=== PATIENT | female | born 1960 | race Caucasian/White ===

== ENCOUNTER → 2018-06-29 11:15 | Outpatient (CLI) | payer OTHER, SELFPAY ==
[2018-06-29 13:37] LABS: Add Manual Diff / Slide Review NO; Basophils Absolute Auto 100 /uL (0-100); Basophils Percent Auto 0.6 % (0-2); Eosinophils Absolute Auto 200 /uL (0-450); Eosinophils Percent Auto 1.6 % (2-4); Hematocrit 44.9 % (36-46); Hemoglobin 15.1 g/dL (12.0-16.0); Lymphocytes Absolute Auto 3000 /uL (1100-4500); Lymphocytes Percent Auto 29.9 % (25-40); Mean Corpuscular HGB Conc 33.7 % (30-36); Mean Corpuscular Hemoglobin 29.3 PG (26-34); Mean Corpuscular Volume 86.8 fL (80-100); Monocytes Absolute Auto 600 /uL (0-900); Monocytes Percent Auto 6.4 % (3-14); Neutrophils Absolute Auto 6100 /uL (1500-7000); Neutrophils Percent Auto 61.5 % (50-75); Platelet Count 246 X10^3/uL (150-400); Red Blood Cell Count 5.17 X10^6/uL (4.0-5.2); Red Cell Distribution Width 12.6 % (11.6-14.8); White Blood Cell Count 9.9 X10^3/uL (4.5-11.0)
[2018-06-29 13:41] LABS: Carbon Dioxide 31 mmol/L (22-32); Chloride 94 mmol/L (98-107); HEMOLYSIS < 15 (0-50); Potassium 4.7 mmol/L (3.4-5.1); Sodium 139 mmol/L (137-145)
== END ==
PROVIDERS: PCP Family Medicine; Visit Provider Orthopaedic Surgery
DX: Z01.818 Encounter for other preprocedural examination (principal); Z01.812 Encounter for preprocedural laboratory examination
CPT/HCPCS: 36415; 80051; 85025; 93005

== ENCOUNTER 2018-08-15 09:58 | Inpatient (IN) | payer OTHER, SELFPAY ==
[2018-08-08 08:53] VITALS: BMI 41.2
[2018-08-15] VITALS (15 sets, daily range): BP systolic 96–166; BP diastolic 49–86; PULSE 59–87; RESP 11–18; TEMP 35.7–37; O2SAT 94–97; BMI 41.5
--- NOTE | 2018-08-15 06:00 | DI.RAD.S_ITS ---
PROCEDURE: XR PELVIS 1-2V INDICATIONS: prosthesis placement TECHNIQUE: Single frontal view of the pelvis acquired. COMPARISON: None. FINDINGS: Bones: No fractures or dislocations. No suspicious bony lesions. Soft tissues: Visualized bowel gas pattern is normal. No suspicious soft tissue calcifications. IMPRESSION: Expected postoperative appearance after left total hip arthroplasty, normal alignment established. Dictated by: Jose David Burleson M.D. on 08/15/2018 at 15:20 Approved by: Jose David Burleson M.D. on 08/15/2018 at 15:21
[2018-08-15] MEDS: CELECOXIB 200 MG CAPSULE PO (11:19)
[2018-08-15] MEDS: ACETAMINOPHEN 325 MG TABLET 975 MG PO (11:19)
[2018-08-15] MEDS: PREGABALIN 75 MG CAPSULE PO (11:20)
--- NOTE | 2018-08-15 12:05 | PM.PREOP ---
Pre-operative Note Interval Note History & Physical reviewed/Exam performed by Physician: Yes Changes to H&P: No
[2018-08-15] MEDS: CLINDAMYCIN 900 MG/50 ML PIGGYBACK 50 MG IV (13:00)
--- NOTE | 2018-08-15 13:33 | SUR.OPER ---
Lateral on padded OR bed. Gel axillary roll. Arms secured on padded armboard with pillow supporting top arm. Padded hip positioner braces x4 - anterior and posterior chest and pelvis. Additional gel pad used anterior pelvis. Gel pad under bottom leg from knee to foot and secured with tape over sheet.
[2018-08-15] MEDS: ROPIVACAINE 0.5% PF 20ML 60 ML, MORPHINE 4 MG, KETOROLAC 30 MG INJ (13:41)
--- NOTE | 2018-08-15 15:07 | PM.OP.1 ---
Operative Date/Time/Diagnoses Date of procedure: 08/15/18 Time of procedure: 15:10 Pre-op diagnosis: Left hip degenerative joint disease Post-op diagnosis: same Procedure & Clinicians Procedure: Left total hip arthroplasty (CPT code 89828 with pediatric dental assistant) Same procedure as scheduled: Yes Indications: Patient is an 57-year-old female with severe left hip DJD. The patient has pain with activities and at rest, limited ambulation and activity tolerance, difficulties with ADLs, and failure of conservative treatment. We have discussed the nature of condition, treatment options, risks and benefits, and patient elects to proceed with total hip arthroplasty and gives informed consent. Surgeon: Rohit Kahn Spinning Lathe Operator Automatic: Eugenio Devine Anesthesia Type: General and Spinal Operative Notes Closure Type: primary Specimen(s): none sent Prosthetic devices, grafts, tissues, transplants, or devices: Acetabulum: Nolasco and Nephew R3 acetabular component size 48 mm Femoral component: Nolasco [employer] Nephew Anthology stem size 4 with standard offset Femoral head: 32 mm + 0 Oxinium Estimated Blood Loss (mL): 150 Blood products transfused: none Procedure in detail: After satisfaction induction of anesthetic, and administration of IV antibiotics, the patient was positioned in the lateral decubitus position with all bony prominences well padded and pelvic position secured using a hip gang tailer positioning device. Left hip and lower extremity prepped and draped in the usual sterile fashion, 1st dose of intravenous tranexamic acid was administered, then a longitudinal incision was created centered over the greater trochanter and carried sharply through the skin and subcutaneous tissues down to the fascia caitie which was divided longitudinally and retracted with a Charnley retractor. External rotators visualize, cut, tagged, and retracted posteriorly, then the capsule was cut in a T-type fashion with the corners tagged and retracted. Hip was dislocated and femoral neck cut made according to preoperative templating. Acetabular retractors then placed, and the acetabular labrum and osteophytes were excised. The acetabulum was then sequentially reamed to 47 mm with an excellent circumferential ream and fit with the trial. The trial component was removed and a permanent size 48 mm Nolasco and Nephew R3 acetabular component was selected, positioned, and impacted with satisfactory position and fixation achieved. Permanent liner was then inserted with the elevated lip directed posteriorly. Soft tissue then removed off the lateral femoral neck in the lateral neck was entered using a box osteotome. T-handled reamers placed down the canal followed by sequential broaching to for with the final broach left in place for trial reduction which demonstrated excellent leg length, range of motion, and stability characteristics with a 32 mm +0 trial ball. The trial and broach were removed, and a permanent size 4 Nolasco and Nephew Anthology stem was selected and inserted with excellent position and fixation achieved. Another trial reduction yielded the above characteristics so the trial ball was exchanged for a permanent 32 mm +0 Oxinium ball. The hip was irrigated and reduced and excellent leg length range of motion and stability characteristics were achieved and maintained. Periarticular tissues were infiltrated with ropivacaine, morphine, Toradol. The hip was copiously irrigated, and the capsule repaired with #2 Ethibond, and the piriformis was repaired back to the greater trochanter with the same. Fascia caitie closed with interrupted #1 Ethibond sutures, and the subcutaneous tissues were closed in 2 layers of 0 Vicryl and 2 0 Vicryl. Skin was closed with rhea and sterile dressings applied. Second dose of tranexamic acid was administered intravenously, and the anesthetic was terminated. Condition: stable Disposition: PACU Plan for aftercare: Patient will be admitted to the acute care [facility], and anticipate discharge on postop day 1 or 2 with follow-up in office in 10-14 days. Outpatient physical therapy will be arranged and patient will continue to observe posterior hip precautions. Patient will continue use of postoperative Lovenox for 10 days postop.
--- NOTE | 2018-08-15 15:14 | P.OP_ITS ---
Operative Date/Time/Diagnoses Date of procedure: 08/15/18 Time of procedure: 15:10 Pre-op diagnosis: Left hip degenerative joint disease Post-op diagnosis: same Procedure & Clinicians Procedure: Left total hip arthroplasty (CPT code 16601 with real estate legal assistant) Same procedure as scheduled: Yes Indications: Patient is an 57-year-old female with severe left hip DJD. The patient has pain with activities and at rest, limited ambulation and activity tolerance, difficulties with ADLs, and failure of conservative treatment. We have discussed the nature of condition, treatment options, risks and benefits, and patient elects to proceed with total hip arthroplasty and gives informed consent. Surgeon: Rohit Kahn [employer] Director: Eugenio Devine Anesthesia Type: General and Spinal Operative Notes Closure Type: primary Specimen(s): none sent Prosthetic devices, grafts, tissues, transplants, or devices: Acetabulum: Nolasco and Nephew R3 acetabular component size 48 mm Femoral component: Nolasco and Nephew Anthology stem size 4 with standard offset Femoral head: 32 mm + 0 Oxinium Estimated Blood Loss (mL): 150 Blood products transfused: none Procedure in detail: After satisfaction induction of anesthetic, and administration of IV antibiotics, the patient was positioned in the lateral decubitus position with all bony prominences well padded and pelvic position secured using a hip management professional positioning device. Left hip and lower extremity prepped and draped in the usual sterile fashion, 1st dose of intravenous tranexamic acid was administered, then a longitudinal incision was created centered over the greater trochanter and carried sharply through the skin and subcutaneous tissues down to the fascia caitie which was divided longitudinally and retracted with a Charnley retractor. External rotators visualize, cut, tagged, and retracted posteriorly, then the capsule was cut in a T-type fashion with the corners tagged and retracted. Hip was dislocated and femoral neck cut made according to preoperative templating. Acetabular retractors then placed, and the acetabular labrum and osteophytes were excised. The acetabulum was then sequentially reamed to 47 mm with an excellent circumferential ream and fit with the trial. The trial component was removed and a permanent size 48 mm Nolasco and Nephew R3 acetabular component was selected, positioned, and impacted with satisfactory position and fixation achieved. Permanent liner was then inserted with the elevated lip directed posteriorly. Soft tissue then removed off the lateral femoral neck in the lateral neck was entered using a box osteotome. T- handled reamers placed down the canal followed by sequential broaching to for with the final broach left in place for trial reduction which demonstrated excellent leg length, range of motion, and stability characteristics with a 32 mm +0 trial ball. The trial and broach were removed, and a permanent size 4 Nolasco and Nephew Anthology stem was selected and inserted with excellent position and fixation achieved. Another trial reduction yielded the above characteristics so the trial ball was exchanged for a permanent 32 mm +0 Oxinium ball. The hip was irrigated and reduced and excellent leg length range of motion and stability characteristics were achieved and maintained. Periarticular tissues were infiltrated with ropivacaine, morphine, Toradol. The hip was copiously irrigated, and the capsule repaired with #2 Ethibond, and the piriformis was repaired back to the greater trochanter with the same. Fascia caitie closed with interrupted #1 Ethibond sutures, and the subcutaneous tissues were closed in 2 layers of 0 Vicryl and 2 0 Vicryl. Skin was closed with rhea and sterile dressings applied. Second dose of tranexamic acid was administered intravenously, and the anesthetic was terminated. Condition: stable Disposition: PACU Plan for aftercare: Patient will be admitted to the acute care [facility], and anticipate discharge on postop day 1 or 2 with follow-up in office in 10-14 days. Outpatient physical therapy will be arranged and patient will continue to observe posterior hip precautions. Patient will continue use of postoperative Lovenox for 10 days postop.
--- NOTE | 2018-08-15 16:34 | PT.IPTN ---
Current Diagnoses Unilateral primary osteoarthritis, left hip (08/15/18) Surgery Performed Operation Date: 08/15/18 12:15 Actual Procedures p Total Hip Arthroplasty Posterior(Left) - Rohit Kahn MD Physical Therapy Treatment Note M3 PT-IP Subjective Start: 08/15/18 16:33 Freq: NEEDED Status: Active Protocol: Document 08/15/18 16:20 HH (Rec: 08/15/18 16:34 HH [id number]) Subjective Physical Therapy Visit Type Type Patient Unavailable Notes Pt arrived AC unit at 1600. Still not wake up from anesthesia. Reattempt PT tomorrow AM
[2018-08-15] MEDS: LACTATED RINGERS 1,000 ML 125 ML IV (16:44)
[2018-08-15] MEDS: IBUPROFEN 400 MG TABLET PO ×2 (18:28→21:15)
[2018-08-15] MEDS: METOPROLOL IR 25 MG TABLET PO (18:46)
[2018-08-15] MEDS: OXYCODONE/ACETAMINOPHEN 5/325 TABLET 0.5 TAB PO ×2 (18:46→21:15)
[2018-08-15] MEDS: CEFAZOLIN 2 GM/100 ML FROZ.PIGGY IV (21:00)
[2018-08-15] MEDS: ASPIRIN EC 81 MG TABLET PO (22:27)
--- NOTE | 2018-08-15 23:38 | PC.NURSE ---
Addendum entered by Madison Vargas R.N. 08/15/18 23:43: 2230- pt up to [facility] with 2PA FWW, reports a bit dizzy and hot, back to bed, bed alarm on. Addendum entered by Madison Vargas R.N. 08/15/18 23:41: 2000- Pt dangled in bed so bed lined could be changed r/t inc urine. Pt CMS + able to wiggle toes, ankle wave, stood at bedside 2PA FWW gait belt, then back to bed. reported felt a little dizzy. I.S. to 2500 with 3 breaths. tolerating reg diet. Original Note: 1600- Pt arrived to room 225 from [facility] via bed. A/O x3, Left hip bulky drsg CDI, pt remains with no movement to knees down, can not wiggle toes or move legs bilat, calf SCD's on, ice chips, water and gingerale provided. Pt denies nausea, pain or SOB at this time. 97%RA, LS clear. BT+, reg diet ordered. L hand LR @ 125 infusing. Keon in room, bed alarm on.
[2018-08-16] MEDS: LACTATED RINGERS 1,000 ML 125 ML IV (00:55)
[2018-08-16 03:10] VITALS: BP 124/61; PULSE 74; RESP 20; TEMP 36.6; O2SAT 97
[2018-08-16] MEDS: HYDROCODONE/ACET 5/325 TABLET 1 TAB PO (04:19)
[2018-08-16] MEDS: CEFAZOLIN 2 GM/100 ML FROZ.PIGGY IV (05:05)
[2018-08-16] MEDS: PANTOPRAZOLE 20 MG TABLET PO (05:41)
[2018-08-16 05:51] LABS: Hematocrit 33.9 % (36-46); Hemoglobin 11.6 g/dL (12.0-16.0)
--- NOTE | 2018-08-16 07:38 | PM.PNPO.1 ---
Subjective Interval history: Patient is seen bedside status post left total hip arthroplasty by Dr. Kahn on 08/15/2018. Patient is postop day 1. Her pain is controlled, but she complains of wide spread pruritus, likely secondary to the hydrocodone/APAP. She would like to go home today. Exam Vital Signs (past 8 hours): - 08/16/18 03:10 Temperature 97.9 F Pulse Rate 74 Respiratory Rate 20 Blood Pressure 124/61 Pulse Oximetry 97 Oxygen Delivery Method Room Air Oxygen Flow Rate 0 Narrative Exam Narrative: Well-developed, well-nourished, no acute distress. Alert and oriented to person, place, and time. Dressing on operative hip is clean, dry, and intact with no signs of drainage. Minimal erythema and generalized swelling around the surgical site. Neurovascularly intact in the operative extremity with a soft and compressible calf. Range of motion of the operative ankle intact. Objective Labs Result Diagrams: 08/16/18 05:23 Labs: Laboratory Results - last 24 hr 08/16/18 05:23 Hgb 11.6 L Hct 33.9 L Assessment & Plan Post-op Postoperative Procedures Operation Date: 08/15/18 12:15 Actual Procedures Side Surgeon p Total Hip Arthroplasty Posterior Left Rohit Kahn MD 1. POD #1 s/p above procedure-PT, pain control. 2. Post-operative anemia secondary to acute blood loss-H/H stable at this time, add vitamin c and iron supplement. 3. Stop hydrocodone, add oxycodone. Dispo-d/c home Quality VTE Deep Vein Thrombosis/Pulmonary Embolism Present on Admission: No
[2018-08-16 08:00] VITALS: BP 126/51; PULSE 75; RESP 16; TEMP 36.4; O2SAT 96
[2018-08-16] MEDS: ENOXAPARIN 40 MG/0.4 ML SYRINGE SUBCUT (08:46)
[2018-08-16] MEDS: METOPROLOL IR 25 MG TABLET PO (08:46)
[2018-08-16] MEDS: CHOLECALCIFEROL (VITAMIN D3) 5,000 UNIT TABLET 10000 UNIT PO (08:47)
[2018-08-16] MEDS: MULTIVITAMIN 1 TABLET 1 TAB PO (08:47)
[2018-08-16] MEDS: OXYCODONE/ACETAMINOPHEN 5/325 TABLET 0.5 TAB PO ×2 (08:47→14:15)
[2018-08-16] MEDS: IBUPROFEN 400 MG TABLET PO (08:47)
--- NOTE | 2018-08-16 09:25 | PT.IIE ---
Current Diagnoses Unilateral primary osteoarthritis, left hip (08/15/18) Surgery Performed Operation Date: 08/15/18 12:15 Actual Procedures p Total Hip Arthroplasty Posterior(Left) - Rohit Kahn MD Surgical History (Last Updated 08/08/18 @ 09:00 by Roseline Fong, RN) History of colonoscopy (Acute) History of third molar tooth extraction Status post delivery (10/23/82) Status post delivery (06/28/87) Status post laparoscopic supracervical hysterectomy (06/15/16) Medical History (Last Updated 08/08/18 @ 09:21 by Roseline Fong, VINH) Diverticula of colon (Acute) Former smoker (Acute) GERD (gastroesophageal reflux disease) (Acute) HTN (hypertension) (Acute) Migraines (Acute) Physical Therapy Inpatient Evaluation/Re-Eval M1 PT/OT-IP Prior Functional Status Start: 08/15/18 16:33 Freq: NEEDED Status: Active Protocol: Document 08/16/18 09:25 AB (Rec: 08/16/18 11:46 AB [email or web address]) Medical Review Prior Functional Status Medical History Reviewed Yes Communication able to make needs known Mobility and Gait pt stated that she is independent with all mobilities and ambulation without AD but has used a SPC for the last 2 months due to hip pain Social History Household Members spouse Living Arrangements Mobile home Number of Floors (Floors) One Floor Number of Stairs To Enter/Railing? 5 steps with B rail Home Environment High Toilet Home Equipment Front Wheel Walker Straight Cane Bedside Commode Shower Seat with Backrest Hand Held Shower Bed Rails Grab Bars Near Toilet Grab Bars In Shower Employment Status Retired M2 PT-IP Current Condition Start: 08/15/18 16:33 Freq: NEEDED Status: Active Protocol: Document 08/16/18 09:25 AB (Rec: 08/16/18 11:46 AB [email or web address]) Physical Therapy Current Condition Current Condition Evaluation Date 08/16/18 Treatment Diagnosis s/p L VONDA posterior approach; difficulty in walking Onset Date 08/15/18 Precautions Posterior Hip Precautions No Hip Flexion > 90 degrees No Hip Internal Rotation No Hip Adduction Weight Bearing Status Weight Bearing Status Weight Bear as Tolerated M3 PT-IP Subjective Start: 08/15/18 16:33 Freq: NEEDED Status: Active Protocol: Document 08/16/18 09:25 AB (Rec: 08/16/18 11:46 AB [email or web address]) Subjective Physical Therapy Visit Type Type Initial Evaluation Visit Start Time 09:25 Visit Stop Time 10:15 Total Visit Minutes 50 Number of HOUSEKEEPER CLEANING COOKING Visits 0 Physical Therapy Visit Comments Patient Comments pt agreeable to do PT Therapy Pain Assessment Pain When Pain Assessed At Rest Pain Present Pain Present Pain Reported Location Left Hip Intensity 2 Scale Used Numeric (1 - 10) Pain Management Techniques Apply Cold Timing of Activity with Medications M4 PT-IP Mobility and Gait Start: 08/15/18 16:33 Freq: NEEDED Status: Active Protocol: Document 08/16/18 09:25 AB (Rec: 08/16/18 11:46 AB [email or web address]) PT-Bed Mobility Assessment Supine to Sit Supine to Sit Standby Assistance Sit to Supine Sit to Supine Standby Assistance Scooting Scooting to Edge of Bed Standby Assistance PT-Transfer Assessment Sit to and From Stand Sit to and from Stand Standby Assistance Equipment Transfer Assistive Device Gait Belt Front Wheeled Walker Orthotic/Prosthetic Devices or Brace: No Transfers Transfer Destination Bed Transfer Technique pt ambulated using FWW Transfer Ability Level of Assist Standby Assistance Use of Upper Extremities Gait Assessment Gait Gait Assistance Required: Standby Assistance Distance (Feet) 350 Able to Maintain Weight Bearing Status Yes During Gait Assistive Devices Assistive Device Gait Belt Front Wheeled Walker Orthotic/Prosthetic Devices or Brace: No Gait Deviations General Gait Pattern Antalgic Decreased Stride Length Decreased Feet Clearance Factors Limiting Gait Function Factors Limiting Gait Function Decreased Strength Limited Range of Motion Pain Comments Gait Comments pt ambulated towards the stairs ~ 350 ft x 2 using FWW SBA Stair Climbing Assessment Evaluation Level of Assist On Stairs Standby Assistance Devices Stair Climbing Assistive Devices Left Railing Right Railing Technique/Endurance Stair Climbing Direction Ascend and Descend Stair Climbing Technique Step to Step Number of Steps Climbed 3 Query Text: Stair Climbing Set # Repetitions (reps) 2 PT-Balance Assessment Sitting Balance and Reactions Static Sitting Balance Ability Good Dynamic Sitting Balance Ability Good Standing Balance and Reactions Static Standing Balance Ability Fair Dynamic Standing Balance Ability Fair Device Used FWW M5 PT-IP Objective Assessments Start: 08/15/18 16:33 Freq: NEEDED Status: Active Protocol: Document 08/16/18 09:25 AB (Rec: 08/16/18 11:46 AB [email or web address]) Orientation Orientation/Cognition Level of Alertness Alert Orientation Name Place Situation Language Function Ability No Deficits Noted Safety Awareness Understands Safety Issues Memory Description No Deficits Noted Gross Range of Motion Lower Extremity ROM Assessment Within Functional Limits Strength Lower Extremity Strength Assessment Left Impaired Hip 3+/5 Knee 4-/5 Sensation Assessment Sensation Gross Sensation WNL Muscle Tone Muscle Tone WNL Yes M6 PT-IP Treatment Start: 08/15/18 16:33 Freq: NEEDED Status: Active Protocol: Document 08/16/18 09:25 AB (Rec: 08/16/18 11:46 AB [email or web address]) Physical Therapy Treatment Education Education Provided Precautions Weight Bearing Status Post-Op Packet Safety M7 PT-IP Assessment and Plan Start: 08/15/18 16:33 Freq: NEEDED Status: Active Protocol: Document 08/16/18 09:25 AB (Rec: 08/16/18 11:46 AB [email or web address]) PT Summary Assessment and Plan Potential Rehabilitation Potential Good Status of Condition at Evaluation Stable Summary Impairments Pain ROM Strength Balance Coordination Bed Mobility Transfers Gait Activity Tolerance Assessment Summary pt requiring SBA with mobility and plans to go home with spouse to assist her. car transfer training will be conducted later this afternoon at ~ 3pm. Goals Bed Mobility Goal Independent Transfer Goal Independent Front Wheeled Walker Gait Goal Independent Front Wheel Walker Gait Distance 400 Other Goals up/down 5 steps with B rails mod I Days to Meet Goals 3 Frequency of Treatment Frequency Of Treatment Twice a Day Treatment Plan Physical Therapy Treatment Plan Bed Mobility Training Transfer Training Gait Training Therapeutic Exercise Balance Retraining Post Op Education Discharge Planning Hot or Cold Pack Neuromuscular Re-ed Coordination Retraining Manual Therapy Other Recommendations and Next Treatment car transfer training, stair Focus climbing training Recommendations To Nursing Amount of Assist Needed Standby Assistance Discharge Recommendations PT Discharge Recommendations Home with Assistance Outpatient PT
--- NOTE | 2018-08-16 10:04 | PC.NURSE ---
Pt medicated with 0.5mg of percocet and is now ambulating in halls with PT and she seems to be doing well. Lovenox given and pt instructed on how to give, her will be giving it to her. Dressing to R.hip bulky and cdi. Denies any numbness or tingling to extremity. Pt has been sitting up in her chair and is comfortable.
--- NOTE | 2018-08-16 13:42 | CM.DANOTE ---
DCP/Assessment: Reviewed chart. Patient is a 57yr old male admitted to [facility] for left VONDA performed on 08-15-[address] Kahn. PCP is Sandra Lazcano. Primary payor 1)Paz Rajeev. Met with patient explained CM/SW role. Patient alert and oriented, sitting in recliner at time of visit. Patient reports that she has been seen by therapy and plans to go home today. Patient has all needed DME and supportive spouse/Keon. Patient has outpatient therapy already set up. No additional needs identified. P: Home today. MILAD Ray Discharge Planning/Care Management CM Discharge Assessment Start: 08/16/18 13:33 Freq: Status: Active Protocol: Document 08/16/18 13:33 KJS (Rec: 08/16/18 13:42 KJS [id number]) Discharge Planning Assessment Assigned Chief Accountant MILAD Ray Contact Information Keon Orellana (spouse) [phone] Advance Directives? No: Declines further information History Provided By Patient Medical Record Prior Living Arrangements Mobile home Household Members spouse Type of transporation used prior to Drives own vehicle admit Independent with ADL's Yes Is patient alert and oriented? Yes Caregiver for Another No DME Already Rented / Owned FWW / Walker Patient/Family Preference OP PT Therapy Barriers to Discharge No Discharge Plan Home Transportation Arrangement Family to provide transport. Referrals Initiated None needed Whiteboard Updated in Patient Room with Yes name and ext. 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 Required No Height 163.83 cm Weight 110.677 kg Body Mass Index (BMI) 41.2 Hearing Ability Normal Visual Assist Contacts Glasses Dentition Type Teeth, Natural Present Teeth, Missing Barriers to Learning None Other Aids No Hx Anesthesia Reactions Yes: Spinal leak w/, bad reaction, long to come out w/other c-sec Hx Family Anesthesia Reaction No Hx Malignant Hyperthermia No Hx Blood Transfusions No Anesthesia Review Requested No Spinning Operator No alcohol intake current alcohol intake frequency a few times a month Smoking Status Former smoker Tobacco type cigarettes how long ago did patient quit smoking Quit 11/2010 Substance Use Type does not use Pain Present Pain Reported Musculoskeletal Symptoms Abnormal Gait Back Pain Difficulty Walking Joint Pain Neck Pain History of Falling (Recent or History of No ) Patient is completely paralyzed or No completely immobile Prosthesis or Orthotic Device Cane Mental Status Oriented to own ability Is patient on oxygen? No Does patient have WHITTAKER/SOB No Hx Sleep Apnea No Currently Taking a Beta Natalee Yes: Metoprolol Can You Climb a Flight of Stairs Without Yes SOB Hx Chest Pain No Hx SOB No Hx Syncope or Dizziness No Anti-Coagulant Therapy No Has a Contact Manager No Cardiac Testing No Hx Pacemaker/ICD No Pacemaker Rep Required? No Cardiac Clearance Received Not Applicable Diet Type At Home Regular dysphagia No Bladder Pattern Nocturia Urinary Catheter Present No Hx Urinary Self Catheterization No Diabetes No Patient No Lactating No Hx Drug Resistant Organism No Presence of External or Internal Medical No Devices Have you traveled outside the [facility] in the last 30 days? Marital Status Lives With spouse Prior Living Arrangements Mobile home Number of Floors (Floors) One Floor Support System Child/Children Spouse Does the Patient Have Assistance After Yes Surgery Patient Discharge Plan Description Return Home Comment Pt advised 1 day length of stay per surgeon's office Feels Safe in Current Environment Yes Been Physically Hurt or Threatened By a No Person in Current Environment Do you have thoughts of harming yourself None or others? Are you currently considering suicide? No Do you have a plan to hurt yourself or No Plan others? Do You Have Any Spiritual Beliefs That No May Affect Your HC Choices? Do You Have Any Cultural Practices That No May Affect Your HC Choices? Spiritual Referral None Who Can We Speak to About Patient's Care Family, friends Identifying Code for Release of Patient Declines to issue Information Health Care Proxy/Next of Kin Keon () Health Care Proxy Emergency Contact Name Keon () Emergency Contact Advance Directives? No: Declines further information PAC Instructions Do not shave/clip surgical site Durable medical equipment Medications to take/avoid Nasal antibiotic No ETOH/petroleum product on skin DOS NPO Post-op transportation Pre-surgical wash Sturdy shoes/comfortable clothes Do not bring valuables and remove jewelry
[2018-08-16] MEDS: OXYCODONE IR 5 MG TABLET PO (14:09)
--- NOTE | 2018-08-16 14:59 | PT.IPTN ---
Current Diagnoses Unilateral primary osteoarthritis, left hip (08/15/18) Surgery Performed Operation Date: 08/15/18 12:15 Actual Procedures p Total Hip Arthroplasty Posterior(Left) - Rohit Kahn MD Physical Therapy Treatment Note M2 PT-IP Current Condition Start: 08/15/18 16:33 Freq: NEEDED Status: Discharge Protocol: Document 08/16/18 09:25 AB (Rec: 08/16/18 11:46 AB [id number]) Physical Therapy Current Condition Current Condition Evaluation Date 08/16/18 Treatment Diagnosis s/p L VONDA posterior approach; difficulty in walking Onset Date 08/15/18 Precautions Posterior Hip Precautions No Hip Flexion > 90 degrees No Hip Internal Rotation No Hip Adduction Weight Bearing Status Weight Bearing Status Weight Bear as Tolerated M3 PT-IP Subjective Start: 08/15/18 16:33 Freq: NEEDED Status: Discharge Protocol: Document 08/16/18 14:59 AB (Rec: 08/16/18 16:47 AB [id number]) Subjective Physical Therapy Visit Type Type Treatment Note Visit Start Time 14:59 Visit Stop Time 15:17 Total Visit Minutes 18 Number of SPANISH INTERPRETER/TRANSLATOR Visits 0 Therapy Pain Assessment Pain When Pain Assessed At Rest Pain Present Pain Present Pain Reported Location Left Hip Intensity 4 Scale Used Numeric (1 - 10) M4 PT-IP Mobility and Gait Start: 08/15/18 16:33 Freq: NEEDED Status: Discharge Protocol: Document 08/16/18 14:59 AB (Rec: 08/16/18 16:47 AB [id number]) PT-Transfer Assessment Sit to and From Stand Sit to and from Stand Standby Assistance Equipment Transfer Assistive Device Front Wheeled Walker Transfers Transfer Destination Car Comments Mobility Comments pt ambulated from w/c to the car using FWW SBA. pt stepped up on stool and completed car transfer CGA and cues. educated spouse on how to assist pt. M5 PT-IP Objective Assessments Start: 08/15/18 16:33 Freq: NEEDED Status: Discharge Protocol: Document 08/16/18 09:25 AB (Rec: 08/16/18 11:46 AB [id number]) Orientation Orientation/Cognition Level of Alertness Alert Orientation Name Place Situation Language Function Ability No Deficits Noted Safety Awareness Understands Safety Issues Memory Description No Deficits Noted Gross Range of Motion Lower Extremity ROM Assessment Within Functional Limits Strength Lower Extremity Strength Assessment Left Impaired Hip 3+/5 Knee 4-/5 Sensation Assessment Sensation Gross Sensation WNL Muscle Tone Muscle Tone WNL Yes M6 PT-IP Treatment Start: 08/15/18 16:33 Freq: NEEDED Status: Discharge Protocol: Document 08/16/18 14:59 AB (Rec: 08/16/18 16:47 AB [id number]) Physical Therapy Treatment Education Education Provided Precautions Safety M7 PT-IP Assessment and Plan Start: 08/15/18 16:33 Freq: NEEDED Status: Discharge Protocol: Document 08/16/18 14:59 AB (Rec: 08/16/18 16:47 AB [id number]) PT Summary Assessment and Plan Potential Rehabilitation Potential Good Summary Impairments Pain ROM Strength Balance Bed Mobility Transfers Gait Activity Tolerance Progress Towards Goals Progressing Toward Goals Assessment Summary pt is doing well with mobility requiring SBA. pt went home with spouse. spouse will assist pt at home. pt is set up for outpt PT. Goals Bed Mobility Goal Independent Transfer Goal Independent Front Wheeled Walker Gait Goal Independent Front Wheel Walker Gait Distance 400 Other Goals up/down 5 steps with B rails mod I Days to Meet Goals 3 Frequency of Treatment Frequency Of Treatment Twice a Day Treatment Plan Physical Therapy Treatment Plan Bed Mobility Training Transfer Training Gait Training Therapeutic Exercise Balance Retraining Post Op Education Discharge Planning Hot or Cold Pack Neuromuscular Re-ed Coordination Retraining Manual Therapy Other Recommendations and Next Treatment car transfer training, stair Focus climbing training Recommendations To Nursing Amount of Assist Needed Standby Assistance Discharge Recommendations PT Discharge Recommendations Home with Assistance Outpatient PT
== END 2018-08-16 15:12 | disposition home or self-care (01) | DRG 470 ==
PROVIDERS: Admitting Provider Orthopaedic Surgery; PCP Family Medicine; Visit Provider Orthopaedic Surgery
PROC: 0SRB0JZ Replacement of Left Hip Joint with Synthetic Substitute, Open Approach (ICD-10-PCS; CPT 27130; principal; 2018-08-15 12:15)
DX: M16.12 Unilateral primary osteoarthritis, left hip (principal); Z68.41 Body mass index [BMI] 40.0-44.9, adult; D62 Acute posthemorrhagic anemia; I10 Essential (primary) hypertension; Z87.891 Personal history of nicotine dependence; K21.9 Gastro-esophageal reflux disease without esophagitis; M70.62 Trochanteric bursitis, left hip; E66.9 Obesity, unspecified; L29.8 Other pruritus; T40.2X5A Adverse effect of other opioids, initial encounter
CPT/HCPCS: 36415; 72170; 85014; 85018; 97161; 97530; C1776; J0690; J1100; J1650; J1885; J2250; J2270; J2274; J2405; J2704; J2795

== ENCOUNTER → 2019-06-07 07:38 | Outpatient (CLI) | payer OTHER, SELFPAY ==
[2018-08-15 16:00] VITALS: BMI 41.5
--- NOTE | 2019-06-07 07:42 | DI.MG.S_ITS ---
BILATERAL DIGITAL SCREENING MAMMOGRAM 3D/2D WITH CAD: 06/07/2019 CLINICAL: Routine screening. Family history of breast cancer. Comparison is made to exams dated: 03/02/2016 mammogram, 01/18/2014 mammogram, and 11/03/2012 mammogram - [facility]. There are scattered fibroglandular elements in both breasts. Current study was also evaluated with a Computer Aided Detection (CAD) system. No significant masses, calcifications, or other findings are seen in either breast. There has been no significant interval change. IMPRESSION: NEGATIVE There is no mammographic evidence of malignancy. A 1 year screening mammogram is recommended. This exam was interpreted at Station ID: [id number]. NOTE: For mammograms, a report in lay terms will be sent to the patient. Approximately 15% of breast malignancies will not be visualized mammographically. In the management of a palpable breast mass, a negative mammogram must not discourage biopsy of a clinically suspicious lesion. Electronically Signed By: Clarence bain/leni:06/07/2019 19:39:53 letter sent: Normal Exam ACR BI-RADS Category 1: Negative [id number]
== END ==
PROVIDERS: PCP Family Medicine; Referring Provider Family Medicine; Visit Provider Family Medicine
DX: Z12.31 Encounter for screening mammogram for malignant neoplasm of breast (principal); Z80.3 Family history of malignant neoplasm of breast
CPT/HCPCS: 77063; 77067

== ENCOUNTER → 2020-06-08 10:35 | Outpatient (CLI) | payer BC, SELFPAY ==
[2018-08-15 16:00] VITALS: BMI 41.5
--- NOTE | 2020-06-08 | DI.MG.S_ITS ---
BILATERAL DIGITAL SCREENING MAMMOGRAM 3D/2D WITH CAD: 06/08/2020 CLINICAL: Routine screening. Family history of breast cancer. Comparison is made to exams dated: 06/07/2019 mammogram - [facility], 03/02/2016 mammogram, and 01/18/2014 mammogram - [facility]. The tissue of both breasts is predominantly fatty. Current study was also evaluated with a Computer Aided Detection (CAD) system. No significant masses, calcifications, or other findings are seen in either breast. There has been no significant interval change. IMPRESSION: NEGATIVE There is no mammographic evidence of malignancy. A 1 year screening mammogram is recommended. This exam was interpreted at Station ID: [id number]. NOTE: For mammograms, a report in lay terms will be sent to the patient. Approximately 15% of breast malignancies will not be visualized mammographically. In the management of a palpable breast mass, a negative mammogram must not discourage biopsy of a clinically suspicious lesion. Electronically Signed By: Clarence bain/leni:06/10/2020 07:56:32 letter sent: Normal Exam ACR BI-RADS Category 1: Negative [id number]
== END ==
PROVIDERS: PCP Family Medicine; Referring Provider Family Medicine; Visit Provider Family Medicine
DX: Z12.31 Encounter for screening mammogram for malignant neoplasm of breast (principal); Z80.3 Family history of malignant neoplasm of breast
CPT/HCPCS: 77063; 77067

== ENCOUNTER → 2020-09-30 16:14 | Outpatient (CLI) | payer BC, SELFPAY ==
[2018-08-15 16:00] VITALS: BMI 41.5
--- NOTE | 2020-09-30 16:16 | DI.RAD.S_ITS ---
PROCEDURE: XR CHEST 2V INDICATIONS: chronic cough TECHNIQUE: 2 views of the chest were acquired. COMPARISON: None. FINDINGS: Surgical changes and devices: None. Lungs and pleura: Lungs are clear. No pleural effusions or pneumothorax. Mediastinum: Mediastinal contours are normal. Heart size is normal. Bones and chest wall: No suspicious bony abnormalities. Soft tissues appear unremarkable. IMPRESSION: No acute disease. Dictated by: Chuck Cruz M.D. on 09/30/2020 at 17:17 Approved by: Chuck Cruz M.D. on 09/30/2020 at 17:18
== END ==
PROVIDERS: PCP Family Medicine; Referring Provider Family Medicine; Visit Provider Family Medicine
DX: R05 Cough (principal)
CPT/HCPCS: 71046

== ENCOUNTER 2021-04-06 10:28 | Emergency (ER) | payer BC, SELFPAY ==
[2018-08-15 16:00] VITALS: BMI 41.5
[2021-04-06] VITALS (16 sets, daily range): BP systolic 147–171; BP diastolic 65–74; PULSE 55–80; RESP 14–34; TEMP 37.1; O2SAT 95–98; BMI 45.3
--- NOTE | 2021-04-06 10:46 | DI.RAD.S_ITS ---
PROCEDURE: XR CHEST 1V INDICATIONS: chest pain TECHNIQUE: One view of the chest was acquired. COMPARISON: [facility], CR, XR CHEST 2V, 09/30/2020, 16:14. FINDINGS: Surgical changes and devices: None. Lungs and pleura: Lungs are clear. No pleural effusions or pneumothorax. Mediastinum: Mediastinal contours appear normal. Heart size is normal. The aorta is tortuous with atherosclerotic calcifications. Bones and chest wall: No suspicious bony lesions. Overlying soft tissues appear unremarkable. IMPRESSION: No acute cardiopulmonary abnormality. Dictated by: Kal Piedra M.D. on 04/06/2021 at 10:53 Approved by: Kal Piedra M.D. on 04/06/2021 at 10:53
--- NOTE | 2021-04-06 11:09 | ED.CHESTPAIN ---
HPI - Chest Pain General Chief Complaint: Chest Pain Stated Complaint: chest pain,vomiting,back pain Time Seen by Provider: 04/06/21 11:03 Source: patient Mode of arrival: Family Vehicle Limitations: no limitations History of Present Illness HPI narrative: Patient is a 60-year-old female. Was awoken at approximately 0230 in the morning for epigastric abdominal pain. She went to bed last night feeling fine. When she woke up she was having nausea. She did vomit a couple times which did not change her pain at all. No chest pain. No shortness of breath. She has had abdominal pain in the past recently saw her primary doctor and has referral in to have an endoscopy which she states the pain that brought her in this morning is different from the pain that she has seen her primary doctor in the past for. No urinary symptoms. She has had a hysterectomy. No other abdominal surgeries. No fevers. Had diarrhea couple days ago but nothing current. She did try some Tums and Pepto-Bismol prior to arrival without any improvement. She feels better now than when she did in the middle of the night. Related Data Home Medications Medication Instructions Recorded Confirmed multivitamin (Multiple Vitamins) 1 tab PO QDAY #0 06/08/16 03/25/21 turmeric (bulk) 95 % powder % MISC 02/29/20 03/25/21 (Curcumin) ascorbic acid (vitamin C) 500 mg 500 mg PO DAILY tab 09/30/20 03/25/21 tablet (Vitamin C) cholecalciferol (vitamin D3) 125 125 mcg PO DAILY 09/30/20 03/25/21 mcg (5,000 unit) capsule docusate sodium 100 mg capsule 100 mg PO BID PRN 09/30/20 03/25/21 (Dulcolax Stool Softener (docusate)) magnesium citrate 100 mg tablet 100 mg PO QPM tab 09/30/20 03/25/21 Previous Rx's Medication Instructions Recorded acyclovir 400 mg tablet 400 mg PO TID PRN #45 tab 12/11/20 metoprolol tartrate 50 mg tablet 50 mg PO BID #180 tab 12/24/20 omeprazole 20 mg capsule,delayed See Rx Instructions .ROUTE 01/07/21 release .COMPLEX #90 cap hydrochlorothiazide 25 mg tablet See Rx Instructions .ROUTE 01/16/21 .COMPLEX #90 tab ibuprofen 800 mg tablet 800 mg PO BID PRN #60 tab 04/02/21 ondansetron 4 mg disintegrating 4 mg PO Q6H PRN #10 tab 04/06/21 tablet Allergies Allergy/AdvReac Type Severity Reaction Status Date / Time lisinopril [LISINOPRIL] Allergy Severe Causes my Verified 04/06/21 10:43 throat to close adhesive tape [ADHESIVE TAPE] Allergy Mild REDNESS Verified 04/06/21 10:43 PAPER TAPE OK latex [LATEX] Allergy Mild RASH Verified 04/06/21 10:43 codeine [CODEINE] AdvReac Severe GI UPSET, Verified 04/06/21 10:43 VOMITING, Headaches meperidine [From DEMEROL] AdvReac Severe HALLUCINATI Verified 04/06/21 10:43 ONS Review of Systems Constitutional Constitutional: Reports system reviewed and no additional complaints, except as documented ENT Ears, Nose, Mouth, and Throat: Reports system reviewed and no additional complaints, except as documented Cardiovascular Cardiovascular: Reports system reviewed and no additional complaints, except as documented Respiratory Respiratory: Reports system reviewed and no additional complaints, except as documented Gastrointestinal Gastrointestinal: Reports system reviewed and no additional complaints, except as documented Genitourinary Genitourinary: Reports system reviewed and no additional complaints, except as documented Musculoskeletal Musculoskeletal: Reports system reviewed and no additional complaints, except as documented and Reports as per HPI Integumentary/Breasts Skin/Breast: Reports system reviewed and no additional complaints, except as documented and Reports as per HPI Neurologic Neurologic: Reports system reviewed and no additional complaints, except as documented Hematologic/Lymphatic On Anticoagulants: No Patient History Medical History Cough Diverticula of colon Former smoker GERD (gastroesophageal reflux disease) HTN (hypertension) Migraines Neoplasm of uncertain behavior of skin Prediabetes Surgical History History of colonoscopy History of third molar tooth extraction Status post delivery (10/23/82) Status post delivery (06/28/87) Status post laparoscopic supracervical hysterectomy (06/15/16) Social History household members: spouse Smoking Status: Former smoker alcohol intake: current Smoking Status: Former smoker tobacco type: cigarettes alcohol intake frequency: a few times a month Substance Use Type: does not use Exam Initial Vital Signs Initial Vital Signs: Vital Signs Temperature 98.8 F 04/06/21 10:39 Pulse Rate 68 04/06/21 10:39 Respiratory Rate 18 04/06/21 10:39 Blood Pressure 166/72 H 04/06/21 10:39 Pulse Oximetry 97 04/06/21 10:39 Const General: cooperative, healthy appearing, comfortable and well developed Limitations: mental status not altered HENAR Head: normal to inspection and normocephalic Chest Chest: normal inspection of the chest, No crepitus and No tenderness Resp Effort & Inspection: normal respiratory effort Auscultation: clear to auscultation bilaterally Cardio Rate: regular rate Rhythm: regular rhythm GI Inspection: non-distended Palpation: soft General: bimanual renal exam normal bilaterally Back/Spine/Pelvis Back: normal to inspection and back tenderness Skin General: no rashes or lesions noted Neuro General: patient alert, patient awake, patient oriented x3 and moves all extremities Cognition: normal cognition Speech: speech normal Extrem General: normal to inspection and capillary refill normal Psych Appearance: grossly normal and well kempt Course Orders Ordered: ED Orders 04/06/21 10:46 XR chest 1V Stat EKG-12 Lead Stat 04/06/21 11:00 Complete Blood Count AUTO DIFF Stat Comprehensive Metabolic Panel Stat Lipase Stat Magnesium Stat Troponin & CK Cardiac Panel Stat 04/06/21 11:20 US abdomen limited Stat 04/06/21 13:25 CT abdomen pelvis w con Stat Discontinued Medications Sodium Chloride (Normal Saline 0.9%) 1,000 mls @ 1,000 mls/hr IV BOLUS ONE Stop: 04/06/21 13:46 Last Admin: 04/06/21 13:02 Dose: 1,000 mls/hr Documented by: TONY Ondansetron HCl (Ondansetron 4 Mg/2 Ml Inj) 4 mg IV NOW ONE Stop: 04/06/21 12:48 Last Admin: 04/06/21 13:02 Dose: 4 mg Documented by: TONY Vital Signs Vital signs: Vital Signs - 8 hr 04/06/21 10:39 04/06/21 11:04 04/06/21 11:23 Temperature 98.8 F Pulse Rate 68 62 61 Respiratory Rate 18 26 H 21 Blood Pressure 166/72 H 171/71 H Pulse Oximetry 97 98 98 04/06/21 11:30 04/06/21 11:31 04/06/21 12:00 Temperature Pulse Rate 55 L 56 L 62 Respiratory Rate 14 18 25 H Blood Pressure 148/65 H Pulse Oximetry 97 98 98 04/06/21 12:01 04/06/21 12:30 04/06/21 12:31 Temperature Pulse Rate 66 60 61 Respiratory Rate 34 H 21 19 Blood Pressure 147/65 H 158/67 H Pulse Oximetry 98 98 97 04/06/21 13:00 04/06/21 13:01 Temperature Pulse Rate 62 61 Respiratory Rate 20 21 Blood Pressure 150/65 H Pulse Oximetry 95 96 MDM - Chest Pain Lab Data Attestation: I reviewed the patient's lab results. Result diagrams: 04/06/21 11:00 04/06/21 11:00 Labs: Lab Results 04/06/21 04/06/21 Range/Units 11:00 11:00 WBC 16.3 H (4.5-11.0) X10^3/uL RBC 5.03 (4.0-5.2) X10^6/uL Hgb 14.9 (12.0-16.0) g/dL Hct 43.6 (36-46) % MCV 86.6 (80-100) fL MCH 29.6 (26-34) PG MCHC 34.2 (30-36) % RDW 13.0 (11.6-14.8) % Plt Count 271 (150-400) X10^3/uL Neut % (Auto) 84.9 H (50-75) % Lymph % (Auto) 11.2 L (25-40) % Mcnairy % (Auto) 3.2 (3-14) % Eos % (Auto) 0.2 L (2-4) % Baso % (Auto) 0.5 (0-2) % Neut # (Auto) 03798 H (3856-3950) /uL Lymph # (Auto) 1800 (8943-0689) /uL Mcnairy # (Auto) 500 (0-900) /uL Eos # (Auto) 0 (0-450) /uL Baso # (Auto) 100 (0-100) /uL Sodium 137 (137-145) mmol/L Potassium 4.5 (3.4-5.1) mmol/L Chloride 98 (98-107) mmol/L Carbon Dioxide 31 (22-32) mmol/L BUN 17 (7-17) mg/dL Creatinine 0.61 (0.52-1.04) mg/dL Estimated GFR > 60.0 (>60) mL/min BUN/Creatinine Ratio 27.9 H (6-22) Glucose 129 H (80-110) mg/dL Calcium 9.3 (8.4-10.2) mg/dL Magnesium 1.8 (1.6-2.3) mg/dL Total Bilirubin 0.6 (0.2-1.3) mg/dL AST 42 H (14-36) IU/L ALT 30 (<35) IU/L Alkaline Phosphatase 63 (38-126) U/L Total Creatine Kinase 121 (30-135) U/L CK-MB (CK-2) 1.84 (<2.37) ng/mL CK-MB (CK-2) Rel Index 1.5 (1.5-5.0) % Troponin I < 0.012 (0.01-0.034) ng/mL Total Protein 8.0 (6.3-8.2) g/dL Albumin 4.4 (3.5-5.0) g/dL Globulin 3.6 (1.7-4.1) g/dL Albumin/Globulin Ratio 1.2 (1.0-2.8) Lipase 47 (23-300) U/L Urine Dip Bedside Urine Glucose Negative Bedside Urine Bilirubin - Negative Bedside Urine Ketone - Negative Urine Specific Belle 1.020 Bedside Urine Occult Blood - Negative Bedside Urine pH 8.0 Bedside Urine Protein - Negative Bedside Urine Urobilinogen - Negative Bedside Urine Nitrite - Negative Bedside Urine Leukocytes - Negative Esterase Imaging Data Chest x-ray: Radiologist's Impression: [address] [address] XRay Report Signed Patient: Marlee Orellana MR#: [id number] : 1960 Acct:[id number] Age/Sex: 60 / F Date of Service: 04/06/21 Loc: ED Accession Number: [id number] ?? Procedure: XR chest 1V Ordering Provider: Oz Perez D.O. PROCEDURE:? XR CHEST 1V ? INDICATIONS:? chest pain ? TECHNIQUE:? One view of the chest was acquired.? ? COMPARISON:? [facility], CR, XR CHEST 2V, 09/30/2020, 16:14. ? FINDINGS:? ? Surgical changes and devices:? None.? ? Lungs and pleura:? Lungs are clear.? No pleural effusions or pneumothorax.? ? Mediastinum:? Mediastinal contours appear normal.? Heart size is normal.? The aorta is tortuous with atherosclerotic calcifications. ? Bones and chest wall:? No suspicious bony lesions.? Overlying soft tissues appear unremarkable.? ? IMPRESSION:? No acute cardiopulmonary abnormality. ? ? Dictated by: Kal Piedra M.D. on 04/06/2021 at 10:53 ? ? Approved by: Kal Piedra M.D. on 04/06/2021 at 10:53?? CT scan - abdomen/pelvis: Radiologist's Impression: [place] [address] CT Scan Report Signed Patient: Marlee Orellana MR#: [id number] : 1960 Acct:[id number] Age/Sex: 60 / F Date of Service: 04/06/21 Loc: ED Accession Number: [id number] ?? Procedure: CT abdomen pelvis w con Ordering Provider: Oz Perez D.O. PROCEDURE:? CT ABDOMEN PELVIS W CON ? INDICATIONS:? Abdominal pain and vomiting with eating ? TECHNIQUE:? After the administration of intravenous contrast, axial sections acquired from the lung bases to the pubic symphysis.? Coronal and sagittal reformats were performed.? For radiation dose reduction, the following was used:? automated exposure control, adjustment of mA and/or kV according to patient size.? ? COMPARISON:? None. ? FINDINGS: Image quality:? Excellent.? ? Lung bases:? Lung bases are clear.? Heart size is normal. ? Solid organs:? Liver: The liver has no mass or intrahepatic biliary ductal dilatation. The portal vein and hepatic veins are patent. Biliary: The gallbladder has no gallstones, pericholecystic fluid, gallbladder wall thickening, or surrounding inflammatory change. Pancreas: The pancreas has no mass or ductal dilatation. There is no surrounding inflammation. Spleen: Normal size. There are no masses. Adrenals: No hypertrophy or nodules. Kidneys: No obstructive calculus or hydronephrosis.? No solid mass. No cystic mass. ? Peritoneum and bowel:? There is a small hiatal hernia.? Otherwise the distal esophagus and stomach are normal.? The small bowel has a normal caliber and appearance. The terminal ileum is normal. The large bowel has a normal caliber and appearance.? The appendix is not definitively visualized; however there are no secondary findings to suggest acute appendicitis.? No free fluid or air.? ? Nodes and vessels:? No retroperitoneal or mesenteric adenopathy by size criteria.? Aorta and inferior vena cava are normal in size.? ? Miscellaneous:? No abdominal wall mass or hernia. ? PELVIS:? Genitourinary:? The bladder has no wall thickening or mass. No bladder calcifications. ? Bones:? Degenerative changes with no focal abnormality.? Multilevel disc disease.? No vertebral body compression fractures.? ? IMPRESSION:? No acute abdominal or pelvic abnormality. ? ? Dictated by: Kal Piedra M.D. on 04/06/2021 at 12:48 ? ? Approved by: Kal Piedra M.D. on 04/06/2021 at 12:55 ECG Data Attestation: I personally reviewed and interpreted this ECG as follows: Prior ECG tracings: not available for review Interpretation: Sinus rhythm Ventricular rate is 63 Normal axis Normal QRS Normal QTC No ST T wave changes MDM Narrative Medical decision making narrative: Patient does have epigastric pain. Her ultrasound does show cholelithiasis without signs of cholecystitis. She does have a leukocytosis but otherwise her labs are unremarkable. CT scan the abdomen shows no signs of acute pathology. She has seen her primary doctor. Is in the process of getting in to see a supervisor wet room. She was supposed to be on a proton pump inhibitor but has not for the past couple days because she forgot to put them in her pillbox. Plan to be is to have her start her PPI. Will send her home on nausea medication. Also have her discuss the gallstones with her primary doctor to see whether not she should see a general surgeon about having her gallbladder removed. She was given return precautions. She expressed understanding and agreement. Discharge Plan Departure Patient Disposition: Home Clinical Impression: Abdominal pain, Cholelithiasis Instructions: DI for Abdominal Pain-Adult Activity Restrictions/Additional Instructions: Your gallbladder today does show signs of gallstones but no other signs of an infection. I recommend that you contact your primary doctor about a follow-up to discuss a referral to see General surgery. I also recommend that you continue with the plan to follow-up with gastroenterology for a endoscopy. I also recommend that you continue with your reflux medication. Return to the emergency department for any new or worsening symptoms Prescriptions: New ondansetron 4 mg tablet,disintegrating 4 mg PO Q6H PRN (Reason: nausea and vomiting) Qty: 10 0RF No Action multivitamin [Multiple Vitamins] 1 EACH tablet 1 tab PO QDAY Qty: 0 0RF acyclovir 400 mg tablet 400 mg PO TID PRN (Reason: herpes flare) Qty: 45 0RF Rx Instructions: 3X Daily for 5 days metoprolol tartrate 50 mg tablet 50 mg PO BID Qty: 180 3RF omeprazole 20 mg capsule,delayed release(DR/EC) See Rx Instructions .ROUTE .COMPLEX Qty: 90 3RF Dose Instruction: TAKE 1 CAPSULE BY MOUTH DAILY Rx Instructions: TAKE 1 CAPSULE BY MOUTH DAILY hydrochlorothiazide 25 mg tablet See Rx Instructions .ROUTE .COMPLEX Qty: 90 0RF Dose Instruction: TAKE 1 TABLET BY MOUTH EVERY MORNING NEEDED FOR SWELLING Rx Instructions: TAKE 1 TABLET BY MOUTH EVERY MORNING NEEDED FOR SWELLING ibuprofen 800 mg tablet 800 mg PO BID PRN (Reason: pain) Qty: 60 0RF Rx Instructions: Take 1/2 tablet twice a day with food Curcumin 95 % powder MISC 0RF docusate sodium [Dulcolax Stool Softener (dss)] 100 mg capsule 100 mg PO BID PRN0RF magnesium citrate 100 mg tablet 100 mg PO QPM 0RF ascorbic acid (vitamin C) [Vitamin C] 500 mg tablet 500 mg PO DAILY 0RF Rx Instructions: Takes only in winter cholecalciferol (vitamin D3) 125 mcg (5,000 unit) capsule 125 mcg PO DAILY 0RF Referrals: Damian Naylor MD [Primary Care Provider] -
[2021-04-06 11:13] LABS: Add Manual Diff / Slide Review NO; Basophils Absolute Auto 100 /uL (0-100); Basophils Percent Auto 0.5 % (0-2); Eosinophils Absolute Auto 0 /uL (0-450); Eosinophils Percent Auto 0.2 % (2-4); Hematocrit 43.6 % (36-46); Hemoglobin 14.9 g/dL (12.0-16.0); Lymphocytes Absolute Auto 1800 /uL (1100-4500); Lymphocytes Percent Auto 11.2 % (25-40); Mean Corpuscular HGB Conc 34.2 % (30-36); Mean Corpuscular Hemoglobin 29.6 PG (26-34); Mean Corpuscular Volume 86.6 fL (80-100); Monocytes Absolute Auto 500 /uL (0-900); Monocytes Percent Auto 3.2 % (3-14); Neutrophils Absolute Auto 13800 /uL (1500-7000); Neutrophils Percent Auto 84.9 % (50-75); Platelet Count 271 X10^3/uL (150-400); Red Blood Cell Count 5.03 X10^6/uL (4.0-5.2); White Blood Cell Count 16.3 X10^3/uL (4.5-11.0)
--- NOTE | 2021-04-06 11:20 | DI.US.S_ITS ---
PROCEDURE: US ABDOMEN LIMITED INDICATIONS: RUQ PAIN TECHNIQUE: Real-time scanning was performed of the abdominal and retroperitoneal organs, with image documentation. COMPARISON: None. FINDINGS: Liver: The liver is slightly enlarged measuring 18.3 cm. There is increased echogenicity consistent with hepatic steatosis. Gallbladder: Multiple small stones are seen throughout the gallbladder. There is no wall thickening or pericholecystic fluid. Sonographic Barnett's is positive. Biliary ducts: No intrahepatic biliary ductal dilatation. Pancreas: Visualized portions of the pancreas are sonographically normal. IMPRESSION: 1. Cholelithiasis with no evidence of acute cholecystitis. 2. Hepatic steatosis and mild hepatomegaly. Dictated by: Kal Piedra M.D. on 04/06/2021 at 12:16 Approved by: Kal Piedra M.D. on 04/06/2021 at 12:18
[2021-04-06 11:27] LABS: Alanine Aminotransferase 30 IU/L (<35); Albumin 4.4 g/dL (3.5-5.0); Albumin Globulin Ratio 1.2 (1.0-2.8); Alkaline Phosphatase 63 U/L (38-126); Aspartate Aminotransferase 42 IU/L (14-36); BUN Creatinine Ratio 27.9 (6-22); Bilirubin Total 0.6 mg/dL (0.2-1.3); Blood Urea Nitrogen 17 mg/dL (7-17); Calcium 9.3 mg/dL (8.4-10.2); Carbon Dioxide 31 mmol/L (22-32); Chloride 98 mmol/L (98-107); Creatine Kinase 121 U/L (30-135); Estimated Glomerular Filt Rate > 60.0 mL/min (>60); Globulin 3.6 g/dL (1.7-4.1); Glucose 129 mg/dL (80-110); Lipase 47 U/L (23-300); Magnesium 1.8 mg/dL (1.6-2.3); Potassium 4.5 mmol/L (3.4-5.1); Sodium 137 mmol/L (137-145)
[2021-04-06 11:33] LABS: HEMOLYSIS 75 (0-50)
[2021-04-06 11:38] LABS: Troponin I < 0.012 ng/mL (0.01-0.034)
[2021-04-06 11:42] LABS: CKMB % Relative Index 1.5 % (1.5-5.0); Creatine Kinase MB 1.84 ng/mL (<2.37)
[2021-04-06] MEDS: SODIUM CHLORIDE 0.9% 1,000 ML 1000 ML IV (13:02)
[2021-04-06] MEDS: ONDANSETRON 4 MG/2 ML INJ IV (13:02)
--- NOTE | 2021-04-06 13:25 | DI.CT.S_ITS ---
PROCEDURE: CT ABDOMEN PELVIS W CON INDICATIONS: Abdominal pain and vomiting with eating TECHNIQUE: After the administration of intravenous contrast, axial sections acquired from the lung bases to the pubic symphysis. Coronal and sagittal reformats were performed. For radiation dose reduction, the following was used: automated exposure control, adjustment of mA and/or kV according to patient size. COMPARISON: None. FINDINGS: Image quality: Excellent. Lung bases: Lung bases are clear. Heart size is normal. Solid organs: Liver: The liver has no mass or intrahepatic biliary ductal dilatation. The portal vein and hepatic veins are patent. Biliary: The gallbladder has no gallstones, pericholecystic fluid, gallbladder wall thickening, or surrounding inflammatory change. Pancreas: The pancreas has no mass or ductal dilatation. There is no surrounding inflammation. Spleen: Normal size. There are no masses. Adrenals: No hypertrophy or nodules. Kidneys: No obstructive calculus or hydronephrosis. No solid mass. No cystic mass. Peritoneum and bowel: There is a small hiatal hernia. Otherwise the distal esophagus and stomach are normal. The small bowel has a normal caliber and appearance. The terminal ileum is normal. The large bowel has a normal caliber and appearance. The appendix is not definitively visualized; however there are no secondary findings to suggest acute appendicitis. No free fluid or air. Nodes and vessels: No retroperitoneal or mesenteric adenopathy by size criteria. Aorta and inferior vena cava are normal in size. Miscellaneous: No abdominal wall mass or hernia. PELVIS: Genitourinary: The bladder has no wall thickening or mass. No bladder calcifications. Bones: Degenerative changes with no focal abnormality. Multilevel disc disease. No vertebral body compression fractures. IMPRESSION: No acute abdominal or pelvic abnormality. Dictated by: Kal Piedra M.D. on 04/06/2021 at 12:48 Approved by: Kal Piedra M.D. on 04/06/2021 at 12:55
[2021-04-06] MEDS: PANTOPRAZOLE 40 MG VIAL IV (14:18)
== END 2021-04-06 15:05 | disposition home or self-care (01) ==
PROVIDERS: Emergency Provider Emergency Medicine; PCP Family Medicine
DX: K80.20 Calculus of gallbladder without cholecystitis without obstruction (principal); R07.9 Chest pain, unspecified; R10.9 Unspecified abdominal pain
CPT/HCPCS: 36415; 71045; 74177; 76705; 80053; 81003; 82550; 82553; 83690; 83735; 84484; 85025; 93005; 96374; 96375; 99284; 99285; C9113; J2405; Q9967

== ENCOUNTER → 2021-04-28 09:07 | Outpatient (CLI) | payer BC, SELFPAY ==
[2018-08-15 16:00] VITALS: BMI 41.5
[2021-04-28 10:44] LABS: COVID19 -Nasal RAPID Negative (Negative)
== END ==
PROVIDERS: PCP Family Medicine; Referring Provider Surgery; Visit Provider Surgery
DX: Z20.822 Contact with and (suspected) exposure to COVID-19 (principal)
CPT/HCPCS: 87635

== ENCOUNTER 2021-04-29 06:04 | Day surgery (SDC) | payer BC, SELFPAY ==
[2018-08-15 16:00] VITALS: BMI 41.5
[2021-04-24 13:59] VITALS: BMI 40.6
[2021-04-29] VITALS (7 sets, daily range): BP systolic 111–154; BP diastolic 56–88; PULSE 53–68; RESP 11–20; TEMP 36.1–36.4; O2SAT 92–98; BMI 40.6
--- NOTE | 2021-04-29 | PATH_ITS ---
[facility] Accession Number: [id number] . 01 Material submitted: . gallbladder - GALLBLADDER . 02 Diagnosis: Gallbladder, Cholecystectomy: Chronic cholecystitis, cholesterolosis, and cholelithiasis. MRV 05/02/2021 1404 Local . 02 Electronically signed: . Cecille Stacy MD, Pathologist NPI- [id number] . 01 Gross description: . Specimen received in formalin labeled with the patient's name and gallbladder is composed of a 9 x 3 x 1 cm gallbladder with a 0.3 cm in diameter cystic duct. The gallbladder is received partially opened. The serosa is dunham-suresh and smooth with focal areas of hemorrhage. Opening the gallbladder reveals green bile and multiple small round yellow choleliths ranging from 0.2 to 0.1 cm. The mucosa is green-yellow and bile stained. The wall thickness is 0.1 to 0.3 cm. Restrike Hammer Operator sections are submitted to include the en face margin (blue inked) and financial service representative sections of the mucosa. A1 - margin, A2 - financial service representative sections of the mucosa. ([id number]) /[facility] 05/01/2021 1556 Local . 02 Pathologist provided ICD-10: K81.1, K80.60 . 02 CPT . 253171 Performed at: 01 [facility] [address], [place], [place] [id number] MD Gerhard Mart MD Phone: [phone] Performed at: 02 [facility] [address] [place], [place] [id number] MD Alyssa Cisneros MD Phone: [phone]
[2021-04-29] MEDS: LACTATED RINGERS 1,000 ML 100 ML IV ×2 (07:20→09:13)
--- NOTE | 2021-04-29 07:39 | PM.PREOP ---
Pre-operative Note Interval Note History & Physical reviewed/Exam performed by Physician: Yes Changes to H&P: No
[2021-04-29] MEDS: CEFAZOLIN 2 GM/20 ML SYRINGE IV (08:07)
--- NOTE | 2021-04-29 08:26 | SUR.OPER ---
Supine on padded OR bed, head on pillow, safety belt at thigh, left arm padded and tucked at side. Right arm secured on padded arm board <90 degrees abduction. Legs uncrossed. Padded footboard in place. Tape over blanket to secure lower legs. gel pad under patients heels.
[2021-04-29] MEDS: BUPIVACAINE 0.25% (PF) VIAL 30 ML INJ (08:37)
--- NOTE | 2021-04-29 09:37 | PM.OP.1 ---
Operative Date/Time/Diagnoses Date of procedure: 04/29/21 Time of procedure: 09:37 Pre-op diagnosis: biliary colic Post-op diagnosis: same Procedure & Clinicians Procedure: laparoscopic cholecystectomy Same procedure as scheduled: Yes Indications: biliary colic Surgeon: Travis Cadena Click Yes if Unassisted: Yes Anesthesia Type: General Operative Notes Findings: Chronic cholecystitis Specimen(s): other (gallbladder) Estimated Blood Loss (mL): 20 Procedure in detail: The patient was placed supine on the table and bilateral lower extremity compression devices were applied. Anesthesia was induced they were intubated with an endotracheal tube and received 2g of Ancef. A time-out was performed. They were prepped and draped in sterile fashion. An infraumbilical incision was made, the umbilical stalk was elevated and the fascia was sharply incised entering the abdomen atraumatically. A blunt tip 12mm balloon trocar was then inserted, pneumoperitoneum was established and inspection of the abdomen demonstrated no evidence of injury. They were placed head up and right side up and then a 11 mm port was placed high in the epigastrium and two 5mm in the right upper quadrant. The gallbladder was notable for chronic cholecystitis, there were numerous adhesions between the omentum and the gallbladder that were carefully taken down. The gallbladder was grasped by the fundus and retracted over the liver and retracted laterally by the infundibulum. Using electrocautery the lateral plane between the gallbladder and the liver was opened towards the fundus. The gallbladder was then retracted laterally and the medial plane was developed in the same manner. With the gallbladder mobilized the bottom of the cystic plate was visualized. The hepatocystic triangle was meticulosly skeletonized using hook electrocautery of all fat and fibrous tissue from both the front and the back. Only two structures were then clearly seen entering the gallbladder the cystic duct and the cystic artery. With the critical view of safety fully established the cystic duct was clipped twice proximally and once distally using the 10 mm weck hemo clip applied under direct visualization and then sharply divided. The cystic artery was divided in the same fashion. The gallbladder was removed from the liver bed using electro cautery. The liver bed was then inspected for hemostasis and this was achieved. The abdomen was irrigated with sterile saline and inspection was made that showed the clips in good position. The specimen was removed using Endo-Catch. The abdomen was desufflated. The umbilical fascia was closed with 0 Vicryl in a [id number] fashion under direct visualization. Skin incisions were irrigated and closed with 4-0 Monocryl. 30 ml of 0.25% bupivacaine was infiltrated into the subcutaneous tissue of the incisions. The wounds were sealed with Dermabond. Patient emerged from anesthesia was extubated and transferred to recovery in stable condition. The sponge and instrument count at the end of the operation was correct. Complications: none Post-operative Condition: stable Disposition: same day surgery
[2021-04-29] MEDS: fentaNYL 100 MCG/2 ML INJ IV ×2 (09:41→09:47)
[2021-04-29] MEDS: OXYCODONE IR 5 MG TABLET PO ×2 (09:54→10:28)
== END 2021-04-29 10:51 | disposition home or self-care (01) ==
PROVIDERS: PCP Family Medicine; Referring Provider Surgery; Visit Provider Surgery
PROC: 0FT44ZZ Resection of Gallbladder, Percutaneous Endoscopic Approach (ICD-10-PCS; CPT 47562; principal; 2021-04-29 07:45)
DX: K80.10 Calculus of gallbladder with chronic cholecystitis without obstruction (principal); I10 Essential (primary) hypertension; K21.9 Gastro-esophageal reflux disease without esophagitis; R73.03 Prediabetes; E66.9 Obesity, unspecified; Z68.41 Body mass index [BMI] 40.0-44.9, adult
CPT/HCPCS: 47562; J0690; J1100; J2405; J2704; J3010

== ENCOUNTER → 2021-11-07 11:10 | Outpatient (CLI) | payer BC, SELFPAY ==
[2018-08-15 16:00] VITALS: BMI 41.5
--- NOTE | 2021-11-07 | DI.MG.S_ITS ---
BILATERAL DIGITAL SCREENING MAMMOGRAM 3D/2D WITH CAD: 11/07/2021 CLINICAL: Routine screening. Family history of breast cancer. Comparison is made to exams dated: 06/08/2020 mammogram, 06/07/2019 mammogram - [facility], and 03/02/2016 mammogram - [facility]. The tissue of both breasts is predominantly fatty. Current study was also evaluated with a Computer Aided Detection (CAD) system. No significant masses, calcifications, or other findings are seen in either breast. There has been no significant interval change. IMPRESSION: NEGATIVE There is no mammographic evidence of malignancy. A 1 year screening mammogram is recommended. Based on the Tyrer Cuzick model (a risk assessment model) the patient's lifetime risk is 4.4% and her 10 year risk is 1.8%. According to the ACR, ACS, and NCCN guidelines, an annual breast MRI exam along with mammogram is recommended if the patient's lifetime risk is 20% or greater. This exam was interpreted at Station ID: [id number]. NOTE: For mammograms, a report in lay terms will be sent to the patient. Approximately 15% of breast malignancies will not be visualized mammographically. In the management of a palpable breast mass, a negative mammogram must not discourage biopsy of a clinically suspicious lesion. Electronically Signed By: Rehana [email or web address]/[email or web address]:11/07/2021 13:22:16 letter sent: Normal Exam ACR BI-RADS Category 1: Negative [id number]
== END ==
PROVIDERS: PCP Family Medicine; Referring Provider Family Medicine; Visit Provider Family Medicine
DX: Z12.31 Encounter for screening mammogram for malignant neoplasm of breast (principal); Z80.3 Family history of malignant neoplasm of breast
CPT/HCPCS: 77063; 77067